=== PATIENT | female | born 1995 | race Caucasian/White ===

== ENCOUNTER 2021-04-30 20:26 | Inpatient (IN) ==
[2021-04-30] MEDS ORDERED: ceFAZolin 2000MG 2,000 MG/15 ML SYR IV STA (21:06)
[2021-04-30] MEDS ORDERED: LACTATED RINGER'S 1,000 ML IV PRN (21:06)
[2021-04-30] MEDS ORDERED: OXYTOCIN 30 UNITS/500 ML BAG IV PRN (21:06)
[2021-04-30] MEDS ORDERED: FLUARIX QUADRIVALENT 0.5 ML SYR IM ONE (21:15)
--- NOTE | 2021-04-30 21:23 | Labor Progress Brief Note ---
Date of Service April 30, 2021 Assessment & Plan (1) PROM (premature rupture of membranes): Plan: PROM at 1900HRS - Term Gestation admit Cephalic presentation confirmed with Bedside sono FHR; CAT1 + GBS. Hx of PCN allergy as a chils . pt reports zaheer. never has anaphylaxis discussed Ancef for tx. discussed < 10% sensitivity pt agreeable to Ancef trial Results & Data ([facility]) Vital Signs (Past 12 Hours) Vital Signs Temp Pulse Resp BP 04/30/21 20:44 36.7 C 16 04/30/21 20:43 114 H 108/74
[2021-04-30 21:41] LABS: Hematocrit (blood only) 30.3 % (37-47); Hemoglobin 10.2 g/dL (12.0-16.0); Mean Corpuscular Hemoglobin 29.3 pg (25-34); Mean Corpuscular Hgb Conc 33.7 g/dL (32-36); Mean Corpuscular Volume 87.1 fL (80-100); Mean Platelet Volume 9.5 fL (7.4-10.4); Platelet Count 236 K/uL (130-400); RDW Coefficient of Variation 13.2 % (11.5-14.5); RDW Standard Deviation 42.1 fL (36.4-46.3); Red Blood Count 3.48 M/uL (4.2-5.4); White Blood Count 11.41 K/uL (4.8-10.8)
[2021-05-01] MEDS ORDERED: BUTORPHANOL TARTRATE 1 MG/ML VIAL IV PRN (00:52)
[2021-05-01] MEDS ORDERED: BUTORPHANOL TARTRATE 1 MG/ML VIAL ONE (01:00)
[2021-05-01] MEDS ORDERED: LIDOCAINE 1% LOCAL 20 ML VIAL ONE (01:34)
[2021-05-01] MEDS ORDERED: SUPERCREAM 0.870% 15 GM JAR EXT PRN (01:52)
[2021-05-01] MEDS ORDERED: OXYTOCIN 30 UNITS/500 ML BAG IV PRN (01:52)
[2021-05-01] MEDS ORDERED: HYDROCORTISONE ACETATE 25 MG SUPP PR PRN (01:52)
[2021-05-01] MEDS ORDERED: BENZOCAINE 20% AER SPR 82.5 GM CAN EXT PRN (01:52)
[2021-05-01] MEDS ORDERED: DIPHTHERIA/TETANUS/PERTUSSIS 0.5 ML SYR/VIAL IM ONE (01:52)
[2021-05-01] MEDS ORDERED: IBUPROFEN 600 MG TAB PO ONE (02:07)
[2021-05-01] MEDS ORDERED: ceFAZolin 1000MG 1,000 MG/7.5 ML SYR IV PRN (04:06)
--- NOTE | 2021-05-01 05:02 | Delivery Summary ---
DATE OF NOTE: 05/01/2021. The patient delivered a live female in left occiput anterior presentation. There was no nucha l cord. was delivered and placed on mother's abdomen. Delayed cord clamp was performed. Cor d blood was obtained. Placenta spontaneously delivered. Inspection of the placenta shows normal billy ssly looking placenta. Inspection of the perineum shows a first-degree laceration, which was repaire d with interrupted 2-0 Vicryl stitch. There was good hemostasis. ESTIMATED BLOOD LOSS: 250 mL. All instruments were removed from the vagina and accounted for x2 including sponges, needles, and ret ractors. 's weight and Apgars in the pediatric record. Infant and mother are doing well in recovery. Job ID: [id number]
[2021-05-01] MEDS: IBUPROFEN 600 MG TAB PO PRN ×4 (06:52→21:12)
[2021-05-01] MEDS: DOCUSATE SODIUM 100 MG CAP PO SCH ×2 (09:16→21:12)
[2021-05-01] MEDS: PRENATAL VITAMIN 1 TAB PO SCH (09:16)
[2021-05-01] MEDS: FERROUS SULFATE 325 MG TAB PO SCH (09:16)
[2021-05-01] MEDS: ACETAMINOPHEN 325 MG TAB PO PRN ×3 (09:16→19:28)
[2021-05-02] MEDS: ACETAMINOPHEN 325 MG TAB PO PRN ×2 (00:24→08:07)
[2021-05-02] MEDS: IBUPROFEN 600 MG TAB PO PRN ×3 (00:57→11:25)
[2021-05-02 06:28] LABS: Mean Corpuscular Hemoglobin 28.9 pg (25-34); Mean Corpuscular Hgb Conc 32.4 g/dL (32-36); Mean Corpuscular Volume 89.2 fL (80-100); Mean Platelet Volume 9.6 fL (7.4-10.4); Platelet Count 193 K/uL (130-400); RDW Coefficient of Variation 13.5 % (11.5-14.5); RDW Standard Deviation 43.9 fL (36.4-46.3); Red Blood Count 3.81 M/uL (4.2-5.4); White Blood Count 9.54 K/uL (4.8-10.8)
[2021-05-02] MEDS: FERROUS SULFATE 325 MG TAB PO SCH (08:08)
[2021-05-02] MEDS: PRENATAL VITAMIN 1 TAB PO SCH (08:08)
[2021-05-02] MEDS: DOCUSATE SODIUM 100 MG CAP PO SCH (08:08)
--- NOTE | 2021-05-02 09:53 | Obstetrical Progress Note ---
Date of Service May 02, 2021 Assessment & Plan Admission and Anticipated Discharge Date Admission Date: April 30, 2021 Subjective Patient is seen and examined. She feels well, no complaints. Desires d/c today Ambulating without dizziness Voiding without difficulty Tolerating regular diet with out N&V Bleeding is minimal No fever/ chills/ CP/ SOB/ N&V/ Leg pain Breast feeding without problems Vital Signs Temp Pulse Pulse Resp BP Pulse Ox 05/02/21 00:20 36.9 C 81 18 105/71 98 05/01/21 19:15 36.6 C 87 18 103/71 97 05/01/21 16:30 36.8 C 76 18 111/75 97 05/01/21 13:44 36.8 C 75 20 100/65 Lab Results 04/30/21 04/30/21 04/30/21 Range/Units 21:00 21:00 21:27 WBC 11.41 H (4.8-10.8) K/uL RBC 3.48 L (4.2-5.4) M/uL Hgb 10.2 L (12.0-16.0) g/dL Hct 30.3 L (37-47) % MCV 87.1 (80-100) fL MCH 29.3 (25-34) pg MCHC 33.7 (32-36) g/dL RDW Std Deviation 42.1 (36.4-46.3) fL RDW Coeff of Marino 13.2 (11.5-14.5) % Plt Count 236 (130-400) K/uL MPV 9.5 (7.4-10.4) fL COVID-19 Eval Order Covid19 [facility] SARS-CoV-2, RNA, NAAT NEGATIVE (NEGATIVE) 05/02/21 Range/Units 06:07 WBC 9.54 (4.8-10.8) K/uL RBC 3.81 L (4.2-5.4) M/uL Hgb 11.0 L (12.0-16.0) g/dL Hct 34.0 L (37-47) % MCV 89.2 (80-100) fL MCH 28.9 (25-34) pg MCHC 32.4 (32-36) g/dL RDW Std Deviation 43.9 (36.4-46.3) fL RDW Coeff of Marino 13.5 (11.5-14.5) % Plt Count 193 (130-400) K/uL MPV 9.6 (7.4-10.4) fL COVID-19 Eval Order SARS-CoV-2, RNA, NAAT (NEGATIVE) PE: General: Alert, orientedx3, NAD Abd: soft, NT, fundus firm, below Umbilicus Perineum intact, Lochia rubra minimal Ext; NT, no edema AP: 25 yo s/p , ppd# 1 VSS Afebrile doing well Continue routine care All questions were answered Discussed when to call D/C home , f/u in office Results & Data ([facility]) Vital Signs (Past 12 Hours) Vital Signs Temp Pulse Resp BP Pulse Ox 05/02/21 00:20 36.9 C 81 18 105/71 98
--- NOTE | 2021-05-02 10:00 | Obstetrical Progress Note ---
Date of Service May 02, 2021 Assessment & Plan Admission and Anticipated Discharge Date Admission Date: April 30, 2021 Subjective Patient is seen and examined. She feels well, no complaints. Desires d/c home today Ambulating without dizziness Voiding without difficulty Tolerating regular diet with out N&V Bleeding is minimal No fever/ chills/ CP/ SOB/ N&V/ Leg pain Breast feeding without problems Vital Signs Temp Pulse Resp BP Pulse Ox 05/02/21 00:20 36.9 C 81 18 105/71 98 Vital Signs Temp Pulse Pulse Resp BP Pulse Ox 05/02/21 00:20 36.9 C 81 18 105/71 98 05/01/21 19:15 36.6 C 87 18 103/71 97 05/01/21 16:30 36.8 C 76 18 111/75 97 05/01/21 13:44 36.8 C 75 20 100/65 Lab Results 04/30/21 04/30/21 04/30/21 Range/Units 21:00 21:00 21:27 WBC 11.41 H (4.8-10.8) K/uL RBC 3.48 L (4.2-5.4) M/uL Hgb 10.2 L (12.0-16.0) g/dL Hct 30.3 L (37-47) % MCV 87.1 (80-100) fL MCH 29.3 (25-34) pg MCHC 33.7 (32-36) g/dL RDW Std Deviation 42.1 (36.4-46.3) fL RDW Coeff of Marino 13.2 (11.5-14.5) % Plt Count 236 (130-400) K/uL MPV 9.5 (7.4-10.4) fL COVID-19 Eval Order Covid19 [email or web address] SARS-CoV-2, RNA, NAAT NEGATIVE (NEGATIVE) 05/02/21 Range/Units 06:07 WBC 9.54 (4.8-10.8) K/uL RBC 3.81 L (4.2-5.4) M/uL Hgb 11.0 L (12.0-16.0) g/dL Hct 34.0 L (37-47) % MCV 89.2 (80-100) fL MCH 28.9 (25-34) pg MCHC 32.4 (32-36) g/dL RDW Std Deviation 43.9 (36.4-46.3) fL RDW Coeff of Marino 13.5 (11.5-14.5) % Plt Count 193 (130-400) K/uL MPV 9.6 (7.4-10.4) fL COVID-19 Eval Order SARS-CoV-2, RNA, NAAT (NEGATIVE) PE: General: Alert, orientedx3, NAD Abd: soft, NT, fundus firm, below Umbilicus Perineum intact, Lochia rubra minimal Ext; NT, no edema AP: 25 yo s/p , ppd# 1 VSS Afebrile doing well Continue routine care All questions were answered D/C home , f/u in office Discussed when to call 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
[2021-05-02] MEDS ORDERED: bisacodyL 5 MG TABEC PO SCH (20:00)
[2021-05-03] MEDS ORDERED: bisacodyL 10 MG SUPP PR PRN (01:52)
== END 2021-05-02 11:55 | disposition home or self-care (01) | DRG 807 ==
LOC: OPB 20:26 → 4S1 20:28 → 4S2 05-01 05:03